=== PATIENT | female | born 1980 | race Caucasian/White ===

== ENCOUNTER 2017-02-03 15:40 | Emergency (ER) | payer SELFPAY ==
[~2017-02-03] VITALS: Ht 165.1 cm; Wt 54.4 kg
[2017-02-03 15:41] VITALS: BP 140/100
--- NOTE | 2017-02-03 15:45 | NUR ---
36/F BIBA FOR PRE-BOOK CLEARANCE. PT C/O INABILITY TO SWALLOW. PT ABLE TO BREATHE AND VERBALIZE WITHOUT DIFFICULTY. PT REFUSES TO ALLOW RN TO OBTAIN TEMPERATURE. HX BRONCHITIS.
--- NOTE | 2017-02-03 16:05 | NUR ---
pt placed in bed 4. [facility] at bedside.
[2017-02-03 17:27] VITALS: BP 123/63
--- NOTE | 2017-02-03 17:27 | NUR ---
Patient discharged with v/s stable. Written and verbal after care instructions given and explained. Patient alert, oriented and verbalized understanding of instructions. Ambulatory with steady gait. All questions addressed prior to discharge. ID band removed. Patient advised to follow up with PMD. Rx of CIPRO & PYRIDIUM given. Patient educated on indication of medication including possible reaction and side effects. Opportunity to ask questions provided and answered.
== END 2017-02-03 17:51 | disposition home or self-care (01) ==
LOC: MED 15:40
DX: Z02.89 Encounter for other administrative examinations (principal); N39.0 Urinary tract infection, site not specified; J45.909 Unspecified asthma, uncomplicated

== ENCOUNTER 2017-02-10 05:55 | Emergency (ER) | payer MEDICAID ==
[~2017-02-10] VITALS: Ht 167.6 cm; Wt 68.7 kg
[2017-02-10 06:05] VITALS: BP 121/64
--- NOTE | 2017-02-10 06:13 | NUR ---
Patient ambulated to bed 03.
--- NOTE | 2017-02-10 06:14 | NUR ---
PT C/O ABD PAIN, STATES ABD IS TENDER TO TOUCH, PT STATES IT FEELS LIKE LABOR PAINS, PT STATES SHE HAD A BLADDER INFECTION LAST WEEK BUT WAS UNABLE TO GET RX AT THAT TIME. MED HX; ASTHMA
--- NOTE | 2017-02-10 06:15 | NUR ---
Dr. Talbert evaluating patient at bedside.
[2017-02-10] MEDS ORDERED: PANTOPRAZOLE 40 MG TABEC PO ONE (06:20)
[2017-02-10] MEDS ORDERED: KETOROLAC 60 MG/2 ML VIAL IM ONE (06:20)
[2017-02-10] MEDS ORDERED: ONDANSETRON 4 MG ODT PO ONE (06:20)
[2017-02-10] MEDS ORDERED: cefTRIAXone 1,000 MG VIAL ONE (06:32)
--- NOTE | 2017-02-10 07:07 | NUR ---
Pt report given to SAVANAH DASH . Transfer of care at this time.
--- NOTE | 2017-02-10 07:17 | NUR ---
patient resting in bed sleeping, IV site on Right forearm assessed and show no signs of infultration. VSS, patient is not in any acute distress at this time. Side rail up x 1, bed in lowest positon, HOB slightly elevated for comfort.
--- NOTE | 2017-02-10 08:20 | NUR ---
Patient discharged with v/s stable. Written and verbal after care instructions given and explained. Patient alert, oriented and verbalized understanding of instructions. Ambulatory with steady gait. All questions addressed prior to discharge. ID band removed. Patient advised to follow up with PMD. Rx of zofran, cipro, tramadol, pyridium given. Patient educated on indication of medication including possible reaction and side effects. Opportunity to ask questions provided and answered. IV D/C'd no active bleeding at site, site covered with bandaid. Patient took all belogings with her.
[2017-02-10 08:23] VITALS: BP 118/70
== END 2017-02-10 08:20 | disposition home or self-care (01) ==
LOC: MED 05:55
DX: N12 Tubulo-interstitial nephritis, not specified as acute or chronic (principal); J45.909 Unspecified asthma, uncomplicated
CPT/HCPCS: 81002; 81025; 96360; 96372; 99284; J0696; J1885; J7060; S0119

== ENCOUNTER 2017-03-22 19:31 | Emergency (ER) | payer MEDICAID ==
[~2017-03-22] VITALS: Ht 170.2 cm; Wt 68.5 kg
[2017-03-22 19:41] VITALS: BP 137/81
--- NOTE | 2017-03-23 00:05 | NUR ---
PATIENT LEFT WITHOUT BEING SEEN BY DR. Martinez. NO FURTHER CARE PROVIDED FOR PATIENT.
== END 2017-03-23 00:05 | disposition left against medical advice (07) ==
LOC: MED 19:31
DX: R10.9 Unspecified abdominal pain (principal); Z53.21 Procedure and treatment not carried out due to patient leaving prior to being seen by health care provider

== ENCOUNTER 2017-04-09 03:10 | Emergency (ER) | payer SELFPAY ==
[~2017-04-09] VITALS: Ht 167.6 cm; Wt 68.0 kg
--- NOTE | 2017-04-09 03:14 | NUR ---
JIE SINGER) TO ER BED 4 ACCOMPANIED BY ADRIANO KAMARA
--- NOTE | 2017-04-09 03:15 | NUR ---
Patient being evaluated by physician at bedside.
[2017-04-09 03:19] VITALS: BP 132/81
[2017-04-09 04:05] VITALS: BP 132/81
--- NOTE | 2017-04-09 04:05 | NUR ---
PATIENT BIB [employer]. PATIENT EXAMINED BY . PATIENT MEDICALLY CLEARED AND RELEASED IN CUSTODY IN STABLE CONDITION. ORIGINAL PRE-BOOK FORM GIVEN TO OFFICER OF [facility].
== END 2017-04-09 04:05 ==
LOC: MED 03:10
DX: Z02.89 Encounter for other administrative examinations (principal); R10.30 Lower abdominal pain, unspecified; J45.909 Unspecified asthma, uncomplicated